=== PATIENT | female | born 2000 | race African-American/Black ===

== ENCOUNTER 2024-09-02 11:38 | Emergency (ER) | payer OTHER ==
--- NOTE | 2024-09-02 13:15 | RAD REPORT ---
EXAMINATION: Transvaginal OB COMPARISON: None. HISTORY: ABD PAIN TECHNIQUE: Real-time ultrasound was performed through the pelvis. A transvaginal scan was performed t o better visualize the intrauterine contents and adnexa. FINDINGS: Small gestational sac suspected in the fundal endometrium measuring 7 x 4 mm. Small 1-2 mm yolk sac noted within the gestational sac. There is no embryo yet detected. Both ovaries are visualized and appear unremarkable. There is no free fluid in the cul-de-sac. Measurements and Calculations: 5 weeks 2 days based on mean sac diameter. Estimated date of delivery is 05/03/2025 IMPRESSION: Findings are compatible with early IUP as detailed. Recommend follow-up serial hCG measurements and p elvic sonography 10-12 days.
[2024-09-02 13:55] LABS: Absolute Eosinophils 0.1 K/uL (0-0.5); Absolute Lymphocytes (CBC) 1.5 K/uL (0.7-4.9); Absolute Monocytes 0.4 K/uL (0.1-1.3); Absolute Neutrophil 4.7 K/uL (1.8-8.0); Basophils % 0.6 % (0-1.3); Eosinophils % 0.7 % (0-4.4); Hematocrit 38.8 % (36.0-45.0); Hemoglobin 12.6 g/dL (12.0-15.0); Lymphocytes % 22.6 % (15.3-44.8); MCH 29.2 pg (27.0-35.0); MCHC 32.5 g/dL (32.0-36.0); MCV 89.9 fL (80-100); MPV 8.4 fL (7.6-11.3); Monocytes % 6.6 % (3.3-12.3); Neutrophils % 69.5 % (41.7-73.7); Platelets 290 thou/uL (152-406); RBC Red Blood Cell Count 4.32 M/uL (3.86-4.86); Red Cell Distribution Width 14.9 % (12.1-15.2)
[2024-09-02 13:57] LABS: Specific Gravity > 1.030 (1.005-1.030)
[2024-09-02 13:58] LABS: Specific Gravity > 1.030 (1.005-1.030); Urine Bacteria None Seen /HPF (<20); Urine Bilirubin NEGATIVE (Negative); Urine Blood Negative (Negative); Urine Clarity Turbid (Clear); Urine Color Light-Yellow (Yellow); Urine Culture Reflex Order NOT NEEDED; Urine Glucose NEGATIVE (Negative); Urine Ketones TRACE (Negative); Urine Microscopic Reflex YN ORDER UMIC; Urine Mucus Slight /HPF (None Seen); Urine Nitrite NEGATIVE (Negative); Urine Protein TRACE (Negative); Urine RBC <5 /HPF (None Seen); Urine Urobilinogen Normal (Normal); Urine WBC <5 /HPF (<5)
[2024-09-02 14:24] LABS: Anion Gap 7.5 mEq/L (5.0-15.0); Potassium 3.5 mEq/L (3.5-5.1)
--- NOTE | 2024-09-02 14:27 | EDPHYS ---
Physician Documentation [facility] Name: Ridge Dominguez Age: 24 yrs Sex: Female : 2000 Arrival Date: 09/02/2024 Time: 11:38 Bed 10 Private MD: ED Physician Janell Mcfarland HPI: 09/02 13:49 This 24 yrs old Black Female presents to ER via Ambulatory with complaints of Abdominal sp3 Pain, [id number]. 13:49 24-year-old female G2, P0, A1 with prior molar now presents to the ED with sp3 chief complaint lower abdominal pain. Patient states she is 8 weeks . She denies any vaginal bleeding or discharge. She also denies fever, chest pain, shortness of breath, back pain, upper abdominal pain, rash, or any other signs or symptoms on ROS at this time.. [employer]SM[employer]IC: 12:25 LMP 07/26/2024, unknown tm6 Historical: - Allergies: 12:21 SHELLFISH; tm6 - PMHx: 12:21 molar ; tm6 12:23 Herpes simplex; tm6 - PSHx: 12:21 surgery for molar ; tm6 - Immunization history:: Client reports receiving the 2nd dose of the Covid vaccine. - Infectious Disease History:: Denies. - Social history:: Smoking status: Patient denies any tobacco usage or history of. Patient/guardian denies using alcohol. ROS: 13:50 Constitutional: Negative for fever, chills, and weight loss, Eyes: Negative for injury, sp3 pain, redness, and discharge, Neck: Negative for injury, pain, and swelling, Cardiovascular: Negative for chest pain, palpitations, and edema, Respiratory: Negative for shortness of breath, cough, wheezing, and pleuritic chest pain, Back: Negative for injury and pain, MS/Extremity: Negative for injury and deformity, Skin: Negative for injury, rash, and discoloration, Neuro: Negative for headache, weakness, numbness, tingling, and seizure, Psych: Negative for depression, anxiety, suicide ideation, homicidal ideation, and hallucinations, Allergy/Immunology: Negative for hives, rash, and allergies, Endocrine: Negative for neck swelling, polydipsia, polyuria, polyphagia, and marked weight changes, 13:50 All other systems are negative, Exam: 13:51 Constitutional: This is a well developed, well nourished patient who is awake, alert, sp3 and in no acute distress. Head/Face: Normocephalic, atraumatic. Eyes: Pupils equal round and reactive to light, extra-ocular motions intact. Lids and lashes normal. Conjunctiva and sclera are non-icteric and not injected. Cornea within normal limits. Periorbital areas with no swelling, redness, or edema. Neck: Trachea midline, no thyromegaly or masses palpated, and no cervical lymphadenopathy. Supple, full range of motion without nuchal rigidity, or vertebral point tenderness. No Meningismus. Chest/axilla: Normal chest wall appearance and motion. Nontender with no deformity. No lesions are appreciated. Cardiovascular: Regular rate and rhythm with a normal S1 and S2. No gallops, murmurs, or rubs. Normal PMI, no JVD. No pulse deficits. Respiratory: Lungs have equal breath sounds bilaterally, clear to auscultation and percussion. No rales, rhonchi or wheezes noted. No increased work of breathing, no retractions or nasal flaring. Abdomen/GI: Soft, non-tender, with normal bowel sounds. No distension or tympany. No guarding or rebound. No evidence of tenderness throughout. Back: No spinal tenderness. No costovertebral tenderness. Full range of motion. Skin: Warm, dry with normal turgor. Normal color with no rashes, no lesions, and no evidence of cellulitis. MS/ Extremity: Pulses equal, no cyanosis. Neurovascular intact. Full, normal range of motion. Neuro: Awake and alert, GCS 15, oriented to person, place, time, and situation. Cranial nerves II-XII grossly intact. Motor strength 5/5 in all extremities. Sensory grossly intact. Cerebellar exam normal. Normal gait. Psych: Awake, alert, with orientation to person, place and time. Behavior, mood, and affect are within normal limits. Vital Signs: 12:20 BP 135 / 93; Pulse 95; Resp 17; Temp 98.5(O); Pulse Ox 100% on R/A; MAP 106 mmHg; tm6 Weight 59.42 kg; Height 5 ft. 4 in. ; Pain 7/10; 12:20 Body Mass Index 22.49 (59.42 kg, 162.56 cm) tm6 12:20 Pain Scale: Adult tm6 MDM: 12:35 Medical Screening Exam initiated sp3 13:51 Data reviewed: vital signs, nurses notes, lab test result(s), radiologic studies. ED sp3 course: 24-year-old female with lower abdominal pain after 8 weeks of by dates. Patient in no acute distress and not currently having the pain. Differential diagnosis includes related pain, ectopic, UTI, among others. Ultrasound demonstrates 5-week IUP without adnexal swelling. Labs and UA are pending. Workup negative we will safely discharge patient home to OB follow-up.. 09/02 12:36 Order name: Abo/rh Typing; Complete Time: 14:25 sp3 09/02 12:36 Order name: Basic Metabolic Panel; Complete Time: 14:25 sp3 09/02 12:36 Order name: CBC with Diff; Complete Time: 14:25 sp3 09/02 12:36 Order name: Test, Urine; Complete Time: 14:25 sp3 09/02 12:36 Order name: Quantitative Hcg; Complete Time: 14:25 sp3 09/02 12:36 Order name: Urinalysis w/ reflexes; Complete Time: 14:25 sp3 09/02 12:36 Order name: US Transvaginal Ob; Complete Time: 13:44 sp3 09/02 12:36 Order name: IV Saline Lock; Complete Time: 13:45 sp3 09/02 12:36 Order name: Labs collected and sent; Complete Time: 13:45 sp3 09/02 12:36 Order name: NPO; Complete Time: 13:45 sp3 Administered Medications: No medications were administered Disposition Summary: 09/02/24 14:26 Discharge Ordered Notes: Location: Home sp3 Condition: Stable sp3 Diagnosis - Abdominal pain, early intrauterine sp3 Followup: sp3 - With: Private Physician - When: Upon discharge from the Emergency Department - Reason: Continuance of care Discharge Instructions: - Discharge Summary Sheet sp3 - Abdominal Pain During sp3 Forms: - Medication Reconciliation Form sp3 - Antibiotic Education sp3 - Prescription Opioid Use sp3 - Patient Portal Instructions sp3 - Leadership Thank You Letter sp3 Signatures: Dispatcher [employer] Janell Silvestre MD MD sp3 Steff, Tawney, RN RN tm6 Corrections: (The following items were deleted from the chart) 12:36 12:36 ABO/RH TYPING+BB.LAB.BRZ ordered. EDMS EDMS 12:36 12:36 BASIC METABOLIC PANEL+C.LAB.BRZ ordered. EDMS EDMS 12:36 12:36 CBC+H.LAB.BRZ ordered. EDMS EDMS 12:36 12:36 Test, Urine+UC.LAB.BRZ ordered. EDMS EDMS 12:36 12:36 QUANTITATIVE HCG+C.LAB.BRZ ordered. EDMS EDMS 12:36 12:36 Urinalysis+U.LAB.BRZ ordered. EDMS EDMS 12:36 12:36 Transvaginal Ob+US.RAD.BRZ ordered. EDMS EDMS
--- NOTE | 2024-09-02 14:27 | ER ---
Nurse's Notes [facility] Name: Ridge Dominguez Age: 24 yrs Sex: Female : 2000 Arrival Date: 09/02/2024 Time: 11:38 Bed 10 Private MD: Diagnosis: Abdominal pain, early intrauterine Presentation: 09/02 12:20 Chief complaint: Patient states: suprapubic stabbing pain, starting around 0940 this tm6 morning. Nausea and vomiting. Constipated for a few days. Coronavirus screen: Client denies travel out of the [place] in the last 14 days. Ebola Screen: Patient negative for fever greater than or equal to 101.5 degrees Fahrenheit, and additional compatible Ebola Virus Disease symptoms Patient denies exposure to infectious person. Patient denies travel to an Ebola-affected area in the 21 days before illness onset. No symptoms or risks identified at this time. Initial Sepsis Screen: Does the patient meet any 2 criteria? No. Patient's initial sepsis screen is negative. Does the patient have a suspected source of infection? No. Patient's initial sepsis screen is negative. Risk Assessment: Do you want to hurt yourself or someone else? Patient reports no desire to harm self or others. Onset of symptoms was September 02, 2024 at 09:40. 12:20 Method Of Arrival: Ambulatory tm6 12:20 Acuity: LISA 3 tm6 Triage Assessment: 12:23 General: Appears in no apparent distress. Behavior is calm, cooperative. Pain: tm6 Complains of pain in suprapubic area Pain currently is 7 out of 10 on a pain scale. Quality of pain is described as stabbing, Pain began suddenly, Aggravated by repositioning. EENT: No signs and/or symptoms were reported regarding the EENT system. Neuro: Level of Consciousness is awake, alert, obeys commands, Oriented to person, place, time, situation. Cardiovascular: Patient's skin is warm and dry. Respiratory: Airway is patent Respiratory effort is even, unlabored, Respiratory pattern is regular, symmetrical. GI: Abdomen is flat, non-distended, Reports upper abdominal pain, nausea, vomiting, since this morning. GI: Reports constipation. : Reports pain in suprapubic area since 0940 this morning Pain is 8 out of 10 on a pain scale. Derm: No signs and/or symptoms reported regarding the dermatologic system. Musculoskeletal: No signs and/or symptoms reported regarding the musculoskeletal system. PROPERTY CLAIM REP: 12:25 LMP 07/26/2024, unknown tm6 Historical: - Allergies: 12:21 SHELLFISH; tm6 - PMHx: 12:21 molar ; tm6 12:23 Herpes simplex; tm6 - PSHx: 12:21 surgery for molar ; tm6 - Immunization history:: Client reports receiving the 2nd dose of the Covid vaccine. - Infectious Disease History:: Denies. - Social history:: Smoking status: Patient denies any tobacco usage or history of. Patient/guardian denies using alcohol. Screenin:43 [facility] ED Fall Risk Assessment (Adult) History of falling in the last 3 months, ss including since admission No falls in past 3 months (0 pts) Confusion or Disorientation No (0 pts) Intoxicated or Sedated No (0 pts) Impaired Gait No (0 pts) Mobility Assist Device Used No (0 pt) Altered Elimination No (0 pt) Score/Fall Risk Level 0 - 2 = Low Risk Oriented to surroundings, Maintained a safe environment. Abuse screen: Denies threats or abuse. Denies injuries from another. Nutritional screening: No deficits noted. Tuberculosis screening: Never had TB. Assessment: 13:43 General: Appears in no apparent distress. comfortable, Behavior is calm, cooperative. ss Pain: Complains of pain in suprapubic area Pain currently is 5 out of 10 on a pain scale. Neuro: Level of Consciousness is awake, alert, obeys commands, Oriented to person, place, time, situation. Respiratory: Airway is patent Respiratory effort is even, unlabored, Respiratory pattern is regular, symmetrical. EENT: Oral mucosa is moist. Derm: Skin is intact, is healthy with good turgor, Skin is pink, warm \T\ dry. normal. 14:39 Reassessment: Patient appears in no apparent distress at this time. Patient and/or ss family updated on plan of care and expected duration. Pain level reassessed. Patient is alert, oriented x 3, equal unlabored respirations, skin warm/dry/pink. Vital Signs: 12:20 BP 135 / 93; Pulse 95; Resp 17; Temp 98.5(O); Pulse Ox 100% on R/A; MAP 106 mmHg; tm6 Weight 59.42 kg; Height 5 ft. 4 in. ; Pain 7/10; 12:20 Body Mass Index 22.49 (59.42 kg, 162.56 cm) tm6 12:20 Pain Scale: Adult tm6 ED Course: 11:45 Patient arrived in ED. mg5 12:12 Janell Mcfarland MD is Attending Physician. sp3 12:21 Triage completed. tm6 12:25 Arm band placed on left wrist. tm6 12:54 US Transvaginal Ob In Process Unspecified. EDMS 13:43 Patient has correct armband on for positive identification. Bed in low position. ss 13:45 Abo/rh Typing Sent. bc6 13:45 Basic Metabolic Panel Sent. bc6 13:45 CBC with Diff Sent. bc6 13:45 Test, Urine Sent. bc6 13:45 Quantitative Hcg Sent. bc6 13:45 Urinalysis w/ reflexes Sent. 6 13:45 Initial lab(s) drawn, by ks, sent to lab. Inserted saline lock: 20 gauge in right bc6 antecubital area, using aseptic technique. Blood collected. Flushed with 10 mL NS. 14:39 Tila Meyer, RN is Primary Nurse. ss 14:39 No provider procedures requiring assistance completed. IV discontinued, intact, ss bleeding controlled, No redness/swelling at site. Pressure dressing applied. Administered Medications: No medications were administered Medication: 13:43 VIS not applicable for this client. ss Outcome: 14:26 Discharge ordered by . sp3 14:39 Discharged to home ambulatory, ss 14:39 Condition: good 14:39 Discharge instructions given to patient, Instructed on discharge instructions, follow up and referral plans. Demonstrated understanding of instructions, follow-up care, 14:43 Patient left the ED. ss Signatures: Dispatcher [employer] EDMS Tila Meyer, RN RN Janell Mcfarland MD MD sp3 Misty Nickerson 6 Kathy Burroughs mg5 Daryn Artis RN RN tm6 Corrections: (The following items were deleted from the chart) 12:25 12:20 Chief complaint: Patient states: suprapubic stabbing pain, starting around 0940 tm6 this morning. Nausea and vomiting. tm6
[2024-09-02 14:58] VITALS: BP 135/93; TEMP 98.5; O2SAT 100
== END 2024-09-02 14:43 | disposition home or self-care (01) ==
LOC: ER 11:38
DX: O26.891 Other specified pregnancy related conditions, first trimester (principal); Z3A.01 Less than 8 weeks gestation of pregnancy
CPT/HCPCS: 36415; 76817; 80048; 81001; 81025; 84702; 85025; 86900; 86901

== ENCOUNTER 2024-09-20 09:45 | Emergency (ER) | payer OTHER ==
--- OUTSIDE RECORDS SUMMARY | 2024-09-20 09:48 | XMS REPORT | Continuity of Care Document ---
Author Name Unknown Address [address] [place] [address] [address] [place] [address] [facility] thconnect Address [address] [facility] [address] [place] [address] Care Team Providers Care Apartment Coordinator Name Role Phone AMANDA GEE Attending Clinician Unavailabl socorro [id number], NOB47 Attending Clinician Unavailable MD MIKAYLA Attending Clinician Unavailab TIMOTHY Martínez Attending Clinician Unavailable LAB90 Attending Clinician Unavailable MARTÍNEZ RUTH Attending Clinician Unavailab DONA Bishop Attending Clinician Unavailable Payers Payer Name Policy Type Policy Number Effective Date Expirati on Date Source [employer]ET[employer] MP [employer] 5 O [employer] 94 ON 9 [id number] 2024 00:00:00 Problems Condition Name Condition Details Condition Category Status Onset Date Resolution Date Last Treatment Date Treating Clinician Comments Source Genital herpes simplex Genital herpes simplex Disease Active 2023-10 00:00: 00 Viola vines Sciatica of left side Sciatica of left side Disease Active 2023-10 00:00: 00 Viola vines Encounter for screening for human papillomav irus (HPV) Encounter for screening for human papillomav irus (HPV) Disease Active 2023-10 00:00: 00 Viola vines Positive test (HHS-HCC) Positive test (HHS-HCC) Disease Active 2023-10 00:00: 00 Viola Seybold - Externa l History of molar History of molar Disease Active 2023-10 00:00: 00 Viola Pardo l Allergies, Adverse Reactions, Alerts Allergy Name Allergy Type Status Severity Reaction(s) Onset Date Inactive Date Treating Clinician Comments Source Rico felton Allergy Drug Allergy Active Hives 2023-10 00:00: 00 Viola Serratoa l Social History Social Habit Start Date Stop Date Quantity Comments Source Sexual orientation Shaheen christopher Anaid - External ASSERTION Not Viola Worrell - External Alcoholic beverage intake 2024-09-09 00:00:00 2024-09-09 00:00:00 Lifetime non-drinker (finding) Viola Worrell - External Tobacco use and exposure 2024-08-27 00:00:00 2024-08-27 00:00:00 Smokeless tobacco non-user Viola Worrell - External History of Social function 2024-08-27 00:00:00 2024-08-27 00:00:00 Viola Worrell - External Sex 2024-07-30 09:49:39 2024-07-30 09:49:39 Female (finding) Viola Worrell - External Sex assigned at 2000 00:00:00 2000 00:00:00 Viola Worrell - External Smoking Status Start Date Stop Date Source Never smoked tobacco Viola Worrell - External Medications Ordered Medication Name Filled Medication Name Start Date Stop Date Current Medication? Ordering Clinician Indication Dosage Frequency Signature (SIG) Comments Components Source Vit-Fe Fumarate-FA ( OR) 2023-10 08:55: 16 Yes Take by mouth. Viola Serratoa mohinder Vital Signs Vital Name Observation Time Observation Value Comments S yony Systolic blood pressure 2024-09-09 14:53:00 122 mm[Hg] Viola Hoffmann ld - External Diastolic blood pressure 2024-09-09 14:53:00 80 mm[Hg] Viola Hoffmann ld - External Heart rate 2024-09-09 14:53:00 87 /min Yanira Freemanold - External Body weight 2024-09-09 14:53:00 59.693 kg Princess ey Seybold - External BMI 2024-09-09 14:53:00 22.11 kg/m2 Princess ey Seybold - External Systolic blood pressure 2024-08-27 15:42:00 118 mm[Hg] Viola Freemano ld - External Diastolic blood pressure 2024-08-27 15:42:00 76 mm[Hg] Viola Freemano ld - External Heart rate 2024-08-27 15:42:00 88 /min Yanira y Seybold - External Body temperature 2024-08-27 15:42:00 36.56 Kinjal Viola Freemanold - External Respiratory rate 2024-08-27 15:42:00 18 /min Viola Worrell - External Body height 2024-08-27 15:42:00 164.3 cm Princess keating Seybold - External Body weight 2024-08-27 15:42:00 59.591 kg Princess keating Seybold - External BMI 2024-08-27 15:42:00 22.08 kg/m2 Princess keating Seybold - External Oxygen saturation in Arterial blood by Pulse oximetry 2024-08-27 15:42:00 100 /min Viola Hoffmann ld - External Procedures Procedure Date / Time Performed Performing Clinicia n Source US PREG TRANSVAGINAL - IN OFFICE 2024-09-09 15:15:43 Amanda Gee Anaid - External Encounters Start Date/Time End Date/Time Encounter Type Admission Type Attending [facility] Care Department Encounter ID Source 2025-04-10 13:30:00 2025-04-10 13:30:00 Outpatient AMANDA GEE [id number] Viola Worrell 2025-04-03 13:30:00 2025-04-03 13:30:00 Outpatient AMANDA GEE [id number] Viola Setenzin 2025-03-27 13:30:00 2025-03-27 13:30:00 Outpatient AMANDA GEE [id number] Viola Worrell 2025-03-13 13:30:00 2025-03-13 13:30:00 Outpatient AMANDA GEE [id number] Viola Worrell 2025-02-27 13:30:00 2025-02-27 13:30:00 Outpatient GEE, AMANDA VIOLA VIOLA [id number] Viola Seybold 2025-02-13 13:30:00 2025-02-13 13:30:00 Outpatient GEE, AMANDA VIOLA VIOLA [id number] Viola Seybold 2025-01-30 13:30:00 2025-01-30 13:30:00 Outpatient GEE, AMANDA VIOLA VIOLA [id number] Viola Seybold 2025-01-02 11:45:00 2025-01-02 11:45:00 Outpatient GEE, AMANDA VIOLA VIOLA [id number] Viola Seybold 2024-12-05 13:30:00 2024-12-05 13:30:00 Outpatient GEE, AMANDA VIOLA VIOLA [id number] Viola Seybold 2024-11-06 13:30:00 2024-11-06 13:30:00 Outpatient GEE, AMANDA VIOLA LESTERSEY [id number] Viola Seybold 2024-10-09 14:30:00 2024-10-09 14:30:00 Outpatient GEE, AMANDA VIOLA VIOLA [id number] Viola Seybold 2024-10-01 13:30:00 2024-10-01 13:30:00 Outpatient NOB47, NOB47 VIOLA VIOLA [id number] Viola Seybold 2024-09-09 09:00:00 2024-09-09 09:00:00 Outpatient VIOLA LESTERSEY [id number] Viola Seybold 2024-09-09 08:30:00 2024-09-09 08:30:00 Outpatient GEE, AMANDA VIOLA VIOLA [id number] Viola Seybold 2024-09-09 00:00:00 2024-09-09 00:00:00 Outpatient VIOLA LESTERSEY [id number] Viola Seybold 2024-09-09 00:00:00 2024-09-09 00:00:00 Outpatient GEE, AMANDA VIOLA LESTERSEY [id number] Viola Seybold 2024-09-09 00:00:00 2024-09-09 00:00:00 Outpatient MD VIOLA CARBALLO [id number] [facility] 2024-09-09 00:00:00 2024-09-09 00:00:00 Outpatient AMANDA GEE [id number] [facility] 2024-09-09 00:00:00 2024-09-09 00:00:00 Outpatient MD VIOLA CARBALLO [id number] [facility] 2024-09-09 00:00:00 2024-09-09 00:00:00 Outpatient MD VIOLA CARBALLO [id number] [facility] 2024-09-01 11:45:00 2024-09-01 11:45:00 Outpatient TIMOTHY MORA [id number] [facility] 2024-08-29 08:55:00 2024-08-29 08:55:00 Outpatient LAB90 VIOLA IGLESIAS [id number] [facility] 2024-08-28 00:00:00 2024-08-28 00:00:00 Outpatient MARTÍNEZ RUTH [id number] [facility] 2024-08-28 00:00:00 2024-08-28 00:00:00 Outpatient AMANDA GEE [id number] [facility] 2024-08-27 11:55:00 2024-08-27 11:55:00 Outpatient LAB90 VIOLA IGLESIAS [id number] [facility] 2024-08-27 11:00:00 2024-08-27 11:00:00 Outpatient MARTÍNEZ RUTH [id number] [facility] 2023-12-01 13:37:00 2023-12-01 14:58:00 Emergency E DONA ECHAVARRIA [facility] [id number] 00 Memdonell l Patrice Jain l [facility] Notes Date/Time Note Provider Source 2024-09-09 08:53:44 Chief Complaint Patient presents with Confirmation Of ANDREZ Lr [facility] 2024-08-27 10:52:01 Chief Complaint Patient presents with Physical Took 2 home test 2 days go, both positive. Kimi Daley LVN [facility]
[2024-09-20] MEDS ORDERED: ACETAMINOPHEN 500 MG TAB ONE (10:16)
[2024-09-20 10:18] LABS: Absolute Eosinophils 0.1 K/uL (0-0.5); Absolute Lymphocytes (CBC) 1.2 K/uL (0.7-4.9); Absolute Monocytes 0.3 K/uL (0.1-1.3); Absolute Neutrophil 3.8 K/uL (1.8-8.0); Basophils % 0.5 % (0-1.3); Eosinophils % 1.7 % (0-4.4); Hemoglobin 13.3 g/dL (12.0-15.0); Lymphocytes % 21.3 % (15.3-44.8); MCH 29.1 pg (27.0-35.0); MCHC 32.4 g/dL (32.0-36.0); MCV 89.8 fL (80-100); MPV 8.4 fL (7.6-11.3); Monocytes % 6.3 % (3.3-12.3); Neutrophils % 70.2 % (41.7-73.7); Nucleated Red Blood Cells % 0.1 % (0-0); Platelets 313 thou/uL (152-406); RBC Red Blood Cell Count 4.56 M/uL (3.86-4.86); Red Cell Distribution Width 14.3 % (12.1-15.2)
[2024-09-20 10:20] LABS: Specific Gravity 1.026 (1.005-1.030); Urine Bacteria None Seen /HPF (<20); Urine Bilirubin NEGATIVE (Negative); Urine Blood Negative (Negative); Urine Clarity Extremely Turbid (Clear); Urine Color Light-Yellow (Yellow); Urine Culture Reflex Order NOT NEEDED; Urine Glucose NEGATIVE (Negative); Urine Ketones NEGATIVE (Negative); Urine Microscopic Reflex YN ORDER UMIC; Urine Mucus 1+ /HPF (None Seen); Urine Nitrite NEGATIVE (Negative); Urine Protein TRACE (Negative); Urine RBC None Seen /HPF (None Seen); Urine Urobilinogen Normal (Normal); Urine WBC <5 /HPF (<5)
[2024-09-20 10:53] LABS: Anion Gap 8.4 mEq/L (5.0-15.0); Potassium 3.4 mEq/L (3.5-5.1)
--- NOTE | 2024-09-20 11:58 | RAD REPORT ---
EXAMINATION: US Transvaginal OB COMPARISON: 09/02/2024 HISTORY: [facility] MAIN VAGINAL BLEEDING Bed Name: 15 TECHNIQUE: Real-time ultrasound was performed through the pelvis. A transvaginal scan was performed t o better visualize the intrauterine contents and adnexa. FINDINGS: Uterus is retroverted. There is a single living intrauterine . Small heterogeneous collection along the right inferior margin of the decidua, measuring 7 mm in thic kness, suggesting a small subchorionic hemorrhage. Both ovaries are visualized and appear unremarkable. Corpus luteum present within the right ovary. There is no free fluid in the cul-de-sac. Measurements and Calculations: [place] rump length: 11.3 mm consistent with a sonographic age of 7 weeks, 2 days. The patient's LMP da lyndsey are 07/26/2024. heart rate: 168 bpm. The yolk sac visualized measuring 2.3 mm. IMPRESSION: Single living intrauterine , with a composite sonographic age of 7 weeks, 2 days. Small subchorionic hemorrhage measuring 7 mm in thickness. Close clinical follow-up recommended. Plea se consider short-term follow-up with pelvic ultrasound in 7-10 days to ensure stability.
--- NOTE | 2024-09-20 12:18 | EDPHYS ---
Physician Documentation [facility] Name: Ridge Dominguez Age: 24 yrs Sex: Female : 2000 Arrival Date: 09/20/2024 Time: 09:45 Bed 15 Private MD: ED Physician Angelito Salgado HPI: 09/20 10:16 This 24 yrs old Black Female presents to ER via Ambulatory with complaints of [id number], dr5 Vaginal Bleeding. 10:16 Onset: The symptoms/episode began/occurred last night. Patient is a 24-year-old female dr5 coming in with light vaginal bleeding without clots and lower abdominal cramping that started last night. Patient was seen here in ER with hCG level of 4027 and LMP of 07/26/2024. Patient is A1. Patient denies any other medical. Patient denies fever. Patient taking Robitussin to help get over the flu.. 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 - Infectious Disease History:: Denies. - Social history:: Smoking status: Patient denies any tobacco usage or history of. ROS: 10:16 Constitutional: as per hpi dr5 Exam: 10:16 Constitutional: This is a well developed, well nourished patient who is awake, alert, dr5 and in no acute distress. Head/Face: Normocephalic, atraumatic. Eyes: Pupils equal round and reactive to light, extra-ocular motions intact. Lids and lashes normal. Conjunctiva and sclera are non-icteric and not injected. Cornea within normal limits. Periorbital areas with no swelling, redness, or edema. ENT: Nares patent. No nasal discharge, no septal abnormalities noted. Tympanic membranes are normal and external auditory canals are clear. Oropharynx with no redness, swelling, or masses, exudates, or evidence of obstruction, uvula midline. Mucous membranes moist. Neck: Trachea midline, no thyromegaly or masses palpated, and no cervical lymphadenopathy. Supple, full range of motion without nuchal rigidity, or vertebral point tenderness. No Meningismus. Chest/axilla: Normal chest wall appearance and motion. Nontender with no deformity. No lesions are appreciated. Respiratory: Lungs have equal breath sounds bilaterally, clear to auscultation. No rales, rhonchi or wheezes noted. No increased work of breathing, no retractions or nasal flaring. 10:16 Abdomen/GI: Inspection: abdomen appears normal, Bowel sounds: normal, Palpation: abdomen is soft and non-tender, in all quadrants, 10:16 Skin: Exam negative for 10:16 Neuro: Exam negative for acute changes, Vital Signs: 09:56 BP 123 / 88; Pulse 93; Resp 16; Temp 98; Pulse Ox 99% on R/A; Weight 59.42 kg; Height 5 ll1 ft. 5 in. ; Pain 5/10; 12:25 BP 118 / 81; Pulse 71; Resp 17; Pulse Ox 99% on R/A; rs5 09:56 Body Mass Index 21.80 (59.42 kg, 165.1 cm) ll1 09:56 Pain Scale: Adult ll1 MDM: 09:51 Medical Screening Exam initiated dr5 12:18 Differential diagnosis: subchorionic hemorrhage, threatened miscarriage, incomplete dr5 miscarriage. Data reviewed: vital signs, nurses notes, lab test result(s), Beta HCG: CBC, radiologic studies, ultrasound. Consideration of Admission/Observation Escalation of care including admission/observation considered. Considered escalation versus admission of patient if patient had ectopic . I considered the following discharge prescriptions or medication management in the emergency department Medications were administered in the Emergency Department. See MAR. Care significantly affected by the following Social Determinants of Health: Poor access to healthcare and/or lack of insurance, Poor access to transportation. Counseling: I had a detailed discussion with the patient and/or guardian regarding the historical points, exam findings, and any diagnostic results supporting the discharge/admit diagnosis, the presence of at least one elevated blood pressure reading (>120/80) during this emergency department visit, lab results, the need for outpatient follow up, for definitive care, an OB/Gyne specialist, to return to the emergency department if symptoms worsen or persist or if there are any questions or concerns that arise at home. Medication response: Pain improved. ED course: Patient hCG level is appropriate. Subchorionic hemorrhage noted on ultrasound. Recommended patient make appointment for 7 to 10 days for close monitoring and repeat ultrasound/hCG. Patient's next appointment at [facility] is on October 09, 2024. Pain improved. Labs and ultrasound printed and given to patient. 09/20 10:00 Order name: Basic Metabolic Panel; Complete Time: : dr5 09/20 10:00 Order name: CBC with Diff; Complete Time: 10:46 dr5 09/20 10:00 Order name: Quantitative Hcg; Complete Time: : dr5 09/20 10:00 Order name: Urinalysis w/ reflexes; Complete Time: 10:24 dr5 09/20 10:00 Order name: US Transvaginal Ob; Complete Time: 12:04 dr5 09/20 10:00 Order name: IV Saline Lock; Complete Time: 10: dr5 09/20 10:00 Order name: Labs collected and sent; Complete Time: : dr5 09/20 10:00 Order name: NPO; Complete Time: 10: dr5 Administered Medications: 10:21 Drug: Acetaminophen PO 1000 mg PO once Route: PO; ll1 11:22 Follow up: Response: No adverse reaction rs5 Disposition Summary: 09/20/24 12:18 Discharge Ordered Notes: Location: Home dr5 Condition: Stable dr5 Diagnosis - Other hemorrhage in early dr5 Followup: dr5 - With: Emergency Department - When: As needed - Reason: Worsening of condition Followup: dr5 - With: Private Physician - When: 1 - 2 days - Reason: Recheck today's complaints, Continuance of care, Re-evaluation by your physician Discharge Instructions: - Discharge Summary Sheet dr5 - Subchorionic Hematoma dr5 Forms: - Medication Reconciliation Form dr5 - Patient Portal Instructions dr5 - Leadership Thank You Letter dr5 Signatures: Dispatcher [employer] Hernán Shafer, RN RN ll1 Orlando Manrique, ASSISTANT FRONT OFFICE MANAGER-C ASSISTANT FRONT OFFICE MANAGER-Cdr5 Chin Villegas RN rs5
--- NOTE | 2024-09-20 12:18 | ER ---
Nurse's Notes [facility] Name: Ridge Dominguez Age: 24 yrs Sex: Female : 2000 Arrival Date: 09/20/2024 Time: 09:45 Bed 15 Private MD: Diagnosis: Other hemorrhage in early Presentation: 09/20 09:56 Chief complaint: Patient states: G2, P0. About 8 weeks . Started light vaginal ll1 bleeding with cramping since last night. Coronavirus screen: Client denies travel out of the [place] in the last 14 days. At this time, the client does not indicate any symptoms associated with coronavirus-19. Ebola Screen: Patient denies travel to an Ebola-affected area in the 21 days before illness onset. Initial Sepsis Screen: Does the patient meet any 2 criteria? No. Patient's initial sepsis screen is negative. Does the patient have a suspected source of infection? No. Patient's initial sepsis screen is negative. Risk Assessment: Do you want to hurt yourself or someone else? Patient reports no desire to harm self or others. Onset of symptoms was September 19, 2024. 09:56 Method Of Arrival: Ambulatory ll1 09:56 Acuity: LISA 3 ll1 Triage Assessment: 09:58 General: Appears in no apparent distress. Behavior is calm, cooperative, appropriate ll1 for age. Pain: Complains of pain in pelvis Pain currently is 5 out of 10 on a pain scale. Quality of pain is described as crampy. Neuro: No deficits noted. Cardiovascular: No deficits noted. : Reports cramping, vaginal bleeding that is light flow. 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 - Infectious Disease History:: Denies. - Social history:: Smoking status: Patient denies any tobacco usage or history of. Screenin:15 [facility] ED Fall Risk Assessment (Adult) History of falling in the last 3 months, ll1 including since admission No falls in past 3 months (0 pts) Confusion or Disorientation No (0 pts) Intoxicated or Sedated No (0 pts) Impaired Gait No (0 pts) Mobility Assist Device Used No (0 pt) Altered Elimination No (0 pt) Score/Fall Risk Level 0 - 2 = Low Risk Maintained a safe environment, Hourly rounding (assess needs \T\ fall precautionary measures) done. Abuse screen: Denies threats or abuse. Nutritional screening: No deficits noted. Tuberculosis screening: No symptoms or risk factors identified. Assessment: 09:55 General: Appears in no apparent distress. comfortable, Behavior is calm, cooperative. rs5 Pain: Complains of pain in pelvis Pain currently is 4 out of 10 on a pain scale. Quality of pain is described as aching. Neuro: Level of Consciousness is awake, alert, obeys commands, Oriented to person, place, time, situation. Cardiovascular: Patient's skin is warm and dry. Respiratory: Airway is patent Respiratory effort is even, unlabored, Respiratory pattern is regular, symmetrical. GI: Abdomen is round non-distended, Abd is soft and non tender X 4 quads. : Reports vaginal bleeding that is light flow. EENT: No signs and/or symptoms were reported regarding the EENT system. Derm: Skin is intact, Skin is pink, warm \T\ dry. Musculoskeletal: Range of motion: intact in all extremities. 12:04 Reassessment: Patient and/or family updated on plan of care and expected duration. Pain rs5 level reassessed. Patient is alert, oriented x 3, equal unlabored respirations, skin warm/dry/pink. 12:25 Reassessment: Patient and/or family updated on plan of care and expected duration. Pain rs5 level reassessed. Patient is alert, oriented x 3, equal unlabored respirations, skin warm/dry/pink. Vital Signs: 09:56 BP 123 / 88; Pulse 93; Resp 16; Temp 98; Pulse Ox 99% on R/A; Weight 59.42 kg; Height 5 ll1 ft. 5 in. ; Pain 5/10; 12:25 BP 118 / 81; Pulse 71; Resp 17; Pulse Ox 99% on R/A; rs5 09:56 Body Mass Index 21.80 (59.42 kg, 165.1 cm) ll1 09:56 Pain Scale: Adult ll1 ED Course: 09:49 Patient arrived in ED. mg5 09:51 Orlando Manrique [facility]NP-C [facility] dr5 09:51 Angelito Salgado MD is Attending Physician. dr5 09:56 Hernán Hernandez, RN is Primary Nurse. ll1 09:56 Arm band placed on Patient placed in an exam room, on a stretcher. ll1 09:58 Triage completed. ll1 10:08 Inserted saline lock: 22 gauge in right antecubital area, using aseptic technique. ll1 Blood collected. Flushed with 10 mL NS. 10:16 Patient has correct armband on for positive identification. Provided Education on: ER ll1 procedures and process. 11:20 US Transvaginal Ob In Process Unspecified. EDMS 12:25 No provider procedures requiring assistance completed. rs5 12:25 IV discontinued, intact, bleeding controlled, No redness/swelling at site. Pressure rs5 dressing applied. Administered Medications: 10:21 Drug: Acetaminophen PO 1000 mg PO once Route: PO; ll1 11:22 Follow up: Response: No adverse reaction rs5 Medication: 10:16 VIS not applicable for this client. ll1 Outcome: 12:18 Discharge ordered by MD. dr5 12:27 Discharged to home ambulatory, rs5 12:27 Condition: stable rs5 12:27 Discharge instructions given to patient, family, Instructed on discharge instructions, follow up and referral plans. 12:29 Patient left the ED. rs5 Signatures: Dispatcher [employer] EDMS Hernán Hernandez, RN RN ll1 Chin Villegas RN RN rs5 Kathy Burroughs mg5 Orlando Manrique, FLAT FOLDING MACHINE OPERATOR-C FLAT FOLDING MACHINE OPERATOR-Cdr5 Corrections: (The following items were deleted from the chart) 12:31 10:16 Reassessment: No changes from previously documented assessment. Orlando FINANCIAL ANALYST at rs5 ll1 12:32 09:55 Pain: Denies pain. rs5 rs5
[2024-09-20 12:47] VITALS: BP 123/88; TEMP 98; O2SAT 99
== END 2024-09-20 12:29 | disposition home or self-care (01) ==
LOC: ER 09:45
DX: O20.8 Other hemorrhage in early pregnancy (principal); Z3A.08 8 weeks gestation of pregnancy
CPT/HCPCS: 36415; 76817; 80048; 81001; 84702; 85025